=== PATIENT | male | born 1990 | race Caucasian/White ===

== ENCOUNTER 2017-06-20 11:50 | Emergency (ER) | payer SELFPAY ==
--- NOTE | 2017-06-20 12:51 | Emergency Department Record ---
History of Present Illness - General Chief Complaint: Laceration(s) Stated Complaint: LAC ON RIGHT FINGER Time Seen by Provider: 06/20/17 12:21 Source: Patient Mode of Arrival: Ambulatory Limitations: No limitations - History of Present Illness Initial Commments: The patient cut his R 3rd finger on a piece of metal at work an hour ago. He denies any numbness or tingling and states his Td is UTD. The patient states he is allergic to PCN but can take AMox. Onset/Timin -: Hour(s) Place: Work Context: Accidental Associated Symptoms: None Treatments Prior to Arrival: Bandage - Related Data Hx Tetanus Toxoid Vaccination: Yes Year of Tetanus Vaccination: 2016 Patient Tetanus UTD (within 5 yrs): Yes Previous Rx's Medication Instructions Recorded Cephalexin [Keflex] 500 mg PO QID #20 cap 06/20/17 Allergies Allergy/AdvReac Type Severity Reaction Status Date / Time Penicillins Allergy RASH Verified 03/27/16 22:18 Travel Screening - Travel/Exposure Within Last 30 Days Have you traveled within the last 30 days?: Yes Location Detail:: [place] - Travel/Exposure Within Last Year Have you traveled outside the [place] in the last year?: No - Additonal Travel Details Have you been exposed to anyone with a communicable illness?: No - Travel Symptoms Symptom Screening: None Review of Systems Constitutional: Denies: Chills, Fever Eyes: Denies: Eye discharge ENT: Denies: Congestion Past Medical History - SOCIAL HISTORY Smoking Status: Former smoker Alcohol Use: Occasional Drug Use: None - RESPIRATORY Hx Respiratory Disorders: No - CARDIOVASCULAR Hx Cardio Disorders: No - NEURO Hx Neuro Disorders: No - GI Hx GI Disorders: No - Hx Genitourinary Disorders: No - ENDOCRINE Hx Endocrine Disorders: No - MUSCULOSKELETAL Hx Musculoskeletal Disorders: No - PSYCH Hx Psych Problems: No - HEMATOLOGY/ONCOLOGY Hx Hematology/Oncology Disorders: No Family Medical History Any Significant Family History?: No Physical Exam - General General Appearance: Alert, Cooperative, No acute distress - Extremities Extremities exam: Full ROM, Other (The R 3rd finger is NVI with no pain on full extension.). negative: Normal inspection (There is a one cm lac to the dorsal R 3rd finger just distal to the PIP joint lateral surface.), Tenderness (There is no bony tenderness.) Image of Hand: 1 - 1 cm lac. Course Vital Signs 06/20/17 12:14 Temperature 98.2 F Pulse Rate 95 H Respiratory 18 Rate Blood Pressure 126/81 Pulse Ox 97 - Reevaluation(s) Reevaluation #1: Procedure note: The R 3rd finger was anesth. locally with 1 cc Lido 1%. The wound was lavaged copiously with sterile saline and explored. No tendon or bone was evident. The lac was closed with 3 4.0 nylon sutures. There were no complications. 06/20/17 12:48 Disposition Disposition: Discharge Clinical Impression: Laceration of finger Qualifiers: Encounter type: initial encounter Finger: middle finger Damage to nail status: without damage Foreign body presence: without foreign body Laterality: right Qualified Code(s): S61.212A - Laceration without foreign body of right middle finger without damage to nail, initial encounter Disposition: Home, Self-Care Condition: (1) Good Instructions: Laceration (ED) Additional Instructions: Keep dry for 2 days then no soaking. Watch for signs of infection. Have the suture removed in 10 days. Take Keflex as directed. Prescriptions: Cephalexin [Keflex] 500 mg PO QID #20 cap Forms: Patient Portal Access Time of Disposition: 12:51 Quality - Quality Measures Quality Measures: N/A - Blood Pressure Screening View Details: Yes Does Patient Have Any of the Following: No Blood Pressure Classification: Pre-Hypertensive BP Reading Systolic Measurement: 126 Diastolic Measurement: 81 Screening for High Blood Pressure: < Pre-Hypertensive BP, F/U Documented > [ [id number]] Pre-Hypertensive Follow-up Interventions: Referral to alternative/primary care provider.
[2017-06-20 13:22] LABS: AMPHETAMINE SCREEN URINE NOT DETECTED; BARBITURATE SCREEN URINE NOT DETECTED; BENZODIAZEPINE SCREEN URINE NOT DETECTED; COCAINE SCREEN URINE NOT DETECTED; METHADONE SCREEN URINE NOT DETECTED; METHAMPHETAMINE SCREEN NOT DETECTED; OPIATE SCREEN URINE NOT DETECTED; OXYCODONE SCREEN URINE NOT DETECTED; PHENCYCLIDINE SCREEN URINE NOT DETECTED; PROPOXYPHENE SCREEN URINE NOT DETECTED; THC SCREEN URINE NOT DETECTED; TRICYCLIC ANTIDEPRESSANT SCRN NOT DETECTED
== END 2017-06-20 12:59 | disposition home or self-care (01) ==
LOC: ER 11:50
DX: S61.212A Laceration without foreign body of right middle finger without damage to nail, initial encounter (principal); W45.8XXA Other foreign body or object entering through skin, initial encounter; Y92.63 Factory as the place of occurrence of the external cause; Y99.0 Civilian activity done for income or pay
CPT/HCPCS: 12001; 80305; 99283